=== PATIENT | female | born 1975 | race Caucasian/White ===

== ENCOUNTER 2023-09-21 12:05 | Emergency (ER) | payer MEDICARE, OTHER ==
[~2023-09-21] VITALS: Ht 165.1 cm; Wt 88.5 kg
[2023-09-21 13:32] LABS: BASOPHILS % (AUTO) 0.4 % (0.0-2.0); EOSINOPHILS % (AUTO) 0.2 % (0.0-6.0); HEMATOCRIT 35 % (33-45); HEMOGLOBIN 11.9 g/dL (11.5-14.8); LYMPHOCYTES # (AUTO) 1.2 K/uL (0.8-4.8); LYMPHOCYTES % (AUTO) 17.1 % (20.0-44.0); MEAN CORPUSCULAR HEMOGLOBIN 28 PG (26.0-33.0); MEAN CORPUSCULAR HGB CONC 34 g/dl (31.0-36.0); MEAN CORPUSCULAR VOLUME 82 fL (82-100); MONOCYTES # (AUTO) 0.9 K/uL (0.1-1.30); MONOCYTES % (AUTO) 12.1 % (2.0-12.0); NEUTROPHILS % (AUTO) 70.2 % (43.0-81.0); PLATELET COUNT (AUTO) 166 K/uL (150-450); RED BLOOD CELL COUNT(AUTO) 4.29 MIL/uL (4.0-5.2); RED CELL DISTRIBUTION WIDTH 14.3 % (11.5-15.0); WHITE BLOOD COUNT (AUTO) 7.1 K/uL (4.3-11.0)
[2023-09-21] MEDS ORDERED: ALBUTEROL FS 2.5 MG/0.5 ML VIAL.NEB ONE (13:41)
[2023-09-21 13:48] LABS: CALCIUM, SERUM 8.2 mg/dL (8.5-10.1); POTASSIUM 3.8 mmol/L (3.5-5.1)
[2023-09-21 13:50] VITALS: O2SAT 96
[2023-09-21] MEDS: IV NS 0.9% 1,000 ML BAG IV ONE (13:51)
[2023-09-21] MEDS: ALBUTEROL FS 2.5 MG/0.5 ML VIAL.NEB NEB ONE (13:53)
[2023-09-21 14:08] VITALS: O2SAT 96; O2SAT 99
[2023-09-21 15:29] LABS: APPEARANCE,URINE CLEAR (CLEAR); BILIRUBIN,URINE NEGATIVE (NEGATIVE); BLOOD, URINE 1+ Ery/uL (NEGATIVE); COLOR,URINE YELLOW (YELLOW); KETONES,URINE 1+ mg/dL (NEGATIVE); LEUKOCYTE ESTERASE ,URINE NEGATIVE (NEGATIVE); NITRITE, URINE NEGATIVE (NEGATIVE); PROTEIN,URINE 2+ mg/dl (NEGATIVE); UGLUCOSE 3+ mg/dL (NEGATIVE); UROBILINOGEN,URINE 0.2 EU/dL (0.2)
[2023-09-21] MEDS ORDERED: FLUT9.9S NS (15:33)
[2023-09-21] MEDS ORDERED: FLUT10.62 INH (15:33)
[2023-09-21] MEDS ORDERED: ALBU18HF2 INH (15:33)
[2023-09-21 15:38] LABS: ADD URINE CULTURE NO; BACTERIA,URINE None seen /HPF (None Seen); WBC,URINE 0-2 /HPF (0-3)
[2023-09-21] MEDS ORDERED: GUAI200T5 PO (16:07)
[2023-09-21 16:20] VITALS: BP 119/75; TEMP 98.7; O2SAT 95
== END 2023-09-21 16:21 | disposition home or self-care (01) ==
LOC: ER 12:05
DX: U07.1 COVID-19 (principal); I10 Essential (primary) hypertension; E11.9 Type 2 diabetes mellitus without complications; J45.909 Unspecified asthma, uncomplicated
CPT/HCPCS: 99285; 96360; 87426; 85025; 80048; 81001; 36415; 94640; J7030

== ENCOUNTER 2024-03-06 13:43 | Emergency (ER) | payer MEDICARE, OTHER ==
[~2024-03-06] VITALS: Ht 165.1 cm; Wt 115.7 kg
[~2024-03-06 13:43] MED LIST: ALBU18HF2 INH; FLUT10.62 INH; FLUT9.9S NS; GUAI200T5 PO
[2024-03-06 13:50] VITALS: TEMP 98
[2024-03-06] MEDS ORDERED: FAMOTIDINE (20 MG) 20 MG TABLET ONE (15:00)
[2024-03-06] MEDS ORDERED: LORATADINE 10 MG TABLET ONE (15:00)
[2024-03-06] MEDS ORDERED: ALBUTEROL FS 2.5 MG/0.5 ML VIAL.NEB ONE (15:08)
[2024-03-06 15:10] VITALS: O2SAT 98
[2024-03-06] MEDS: ALBUTEROL FS 2.5 MG/0.5 ML VIAL.NEB NEB ONE (15:10)
[2024-03-06] MEDS: FAMOTIDINE (20 MG) 20 MG TABLET PO ONE (15:13)
[2024-03-06] MEDS: LORATADINE 10 MG TABLET PO SCH (15:13)
[2024-03-06 15:20] VITALS: O2SAT 99
[2024-03-06] MEDS ORDERED: LORA10TA7 PO (16:13)
[2024-03-06] MEDS ORDERED: FAMO20TA8 PO (16:13)
[2024-03-06] MEDS ORDERED: EPIN0.3P3 IM (16:13)
[2024-03-06 16:27] VITALS: BP 120/80; O2SAT 99
== END 2024-03-06 16:28 | disposition home or self-care (01) ==
LOC: ER 13:51
DX: J45.909 Unspecified asthma, uncomplicated (principal); R06.02 Shortness of breath; E11.9 Type 2 diabetes mellitus without complications; Z79.51 Long term (current) use of inhaled steroids; Z79.899 Other long term (current) drug therapy; Z60.2 Problems related to living alone
CPT/HCPCS: 94799-TC

== ENCOUNTER 2024-04-02 18:07 | Emergency (ER) | payer MEDICARE, OTHER ==
[~2024-04-02] VITALS: Ht 172.7 cm; Wt 90.7 kg
[~2024-04-02 18:07] MED LIST changes: +EPIN0.3P3 IM; +FAMO20TA8 PO; +LORA10TA7 PO
[2024-04-02 18:15] VITALS: TEMP 98.1
[2024-04-02 19:05] LABS: BASOPHILS % (AUTO) 0.4 % (0.0-2.0); EOSINOPHILS # (AUTO) 0.1 K/uL (0.0-0.7); EOSINOPHILS % (AUTO) 1.4 % (0.0-6.0); HEMATOCRIT 36 % (33-45); LYMPHOCYTES # (AUTO) 2.4 K/uL (0.8-4.8); LYMPHOCYTES % (AUTO) 35.1 % (20.0-44.0); MEAN CORPUSCULAR HEMOGLOBIN 28 PG (26.0-33.0); MEAN CORPUSCULAR HGB CONC 33 g/dl (31.0-36.0); MEAN CORPUSCULAR VOLUME 84 fL (82-100); MONOCYTES # (AUTO) 0.4 K/uL (0.1-1.30); MONOCYTES % (AUTO) 6.3 % (2.0-12.0); NEUTROPHILS # (AUTO) 3.9 K/uL (1.8-8.9); NEUTROPHILS % (AUTO) 56.8 % (43.0-81.0); PLATELET COUNT (AUTO) 250 K/uL (150-450); RED BLOOD CELL COUNT(AUTO) 4.34 MIL/uL (4.0-5.2); WHITE BLOOD COUNT (AUTO) 6.9 K/uL (4.3-11.0)
[2024-04-02 19:13] LABS: CREATININE 0.6 mg/dL (0.6-1.3); POTASSIUM 4.1 mmol/L (3.5-5.1)
[2024-04-02] MEDS ORDERED: ALBU18HF2 INH (20:08)
[2024-04-02 20:34] VITALS: BP 125/79; O2SAT 98
== END 2024-04-02 20:34 | disposition home or self-care (01) ==
LOC: ER 18:16
DX: R06.02 Shortness of breath (principal); J45.909 Unspecified asthma, uncomplicated; E11.9 Type 2 diabetes mellitus without complications; Z79.52 Long term (current) use of systemic steroids; Z79.899 Other long term (current) drug therapy; Z20.822 Contact with and (suspected) exposure to COVID-19; Z60.2 Problems related to living alone
CPT/HCPCS: 36415; 71045-TC; 80048-TC; 85025-TC

== ENCOUNTER 2024-04-25 15:26 | Emergency (ER) | payer MEDICARE, OTHER ==
[~2024-04-25] VITALS: Ht 165.1 cm; Wt 90.7 kg
[2024-04-25] MEDS ORDERED: predniSONE 20 MG TABLET ONE (15:55)
[2024-04-25] MEDS: predniSONE 20 MG TABLET PO ONE (16:00)
[2024-04-25] MEDS ORDERED: IPRATROPIUM NEB FS 0.5 MG/2.5 ML AMPUL.NEB ONE (16:12)
[2024-04-25] MEDS ORDERED: ALBUTEROL FS 2.5 MG/0.5 ML VIAL.NEB ONE (16:12)
[2024-04-25] MEDS: IPRATROPIUM NEB FS 0.5 MG/2.5 ML AMPUL.NEB NEB ONE (16:22)
[2024-04-25] MEDS: ALBUTEROL FS 2.5 MG/3 ML VIAL.NEB CONTNEB ONE (16:22)
[2024-04-25 16:23] VITALS: O2SAT 98
[2024-04-25 16:42] VITALS: O2SAT 98
[2024-04-25] MEDS ORDERED: PRED50TA PO (17:34)
[2024-04-25 18:00] VITALS: BP 145/82; TEMP 98.5; O2SAT 98
== END 2024-04-25 17:45 | disposition home or self-care (01) ==
LOC: ER 15:32
DX: J45.909 Unspecified asthma, uncomplicated (principal); R05.9 Cough, unspecified; E11.9 Type 2 diabetes mellitus without complications; Z60.2 Problems related to living alone; Z20.822 Contact with and (suspected) exposure to COVID-19
CPT/HCPCS: 99285; 71045; 87426; 87420; 94640; J7512

== ENCOUNTER 2024-06-06 02:00 | Emergency (ER) | payer MEDICARE, OTHER ==
[~2024-06-06] VITALS: Ht 167.6 cm; Wt 74.8 kg
[~2024-06-06 02:00] MED LIST changes: +PRED50TA PO
[2024-06-06 03:55] VITALS: BP 128/79; TEMP 98.5; O2SAT 99
== END 2024-06-06 04:26 | disposition home or self-care (01) ==
LOC: ER 02:03
DX: R06.02 Shortness of breath (principal); E11.9 Type 2 diabetes mellitus without complications; J45.909 Unspecified asthma, uncomplicated; Z79.51 Long term (current) use of inhaled steroids; Z79.52 Long term (current) use of systemic steroids; Z60.2 Problems related to living alone
CPT/HCPCS: 71045-TC; 82962-TC

== ENCOUNTER 2024-09-02 19:16 | Emergency (ER) | payer MEDICARE, OTHER ==
[~2024-09-02] VITALS: Ht 165.1 cm; Wt 90.7 kg
[2024-09-03 08:54] LABS: BASOPHILS % (AUTO) 0.3 % (0.0-2.0); EOSINOPHILS # (AUTO) 0.1 K/uL (0.0-0.7); EOSINOPHILS % (AUTO) 1.6 % (0.0-6.0); HEMATOCRIT 36 % (33-45); HEMOGLOBIN 12.2 g/dL (11.5-14.8); LYMPHOCYTES # (AUTO) 3.2 K/uL (0.8-4.8); LYMPHOCYTES % (AUTO) 44.6 % (20.0-44.0); MEAN CORPUSCULAR HEMOGLOBIN 30 PG (26.0-33.0); MEAN CORPUSCULAR HGB CONC 34 g/dl (31.0-36.0); MEAN CORPUSCULAR VOLUME 87 fL (82-100); MONOCYTES # (AUTO) 0.6 K/uL (0.1-1.30); MONOCYTES % (AUTO) 7.8 % (2.0-12.0); NEUTROPHILS # (AUTO) 3.3 K/uL (1.8-8.9); NEUTROPHILS % (AUTO) 45.7 % (43.0-81.0); PLATELET COUNT (AUTO) 160 K/uL (150-450); RED BLOOD CELL COUNT(AUTO) 4.12 MIL/uL (4.0-5.2); WHITE BLOOD COUNT (AUTO) 7.2 K/uL (4.3-11.0)
[2024-09-03 09:10] LABS: CARBON DIOXIDE 27 mmol/L (21-32); CHLORIDE 105 mmol/L (98-107); CREATININE 0.8 mg/dL (0.6-1.3); GLUCOSE 163 mg/dL (74-106); POTASSIUM 3.8 mmol/L (3.5-5.1); SODIUM SERUM 141 mmol/L (136-145); UREA NITROGEN, BLOOD 10 mg/dL (7-18)
[2024-09-03 09:25] LABS: ALANINE AMINOTRANSFERASE 22 U/L (12-78); ALBUMIN 2.9 g/dL (3.4-5.0); ALKALINE PHOSPHATASE 83 U/L (46-116); ASPARTATE AMINOTRANSFERASE 10 U/L (15-37); BILIRUBIN,DIRECT 0.1 mg/dL (0.0-0.2); BILIRUBIN,TOTAL 0.4 mg/dL (0.2-1.0); TOTAL PROTEIN, SERUM 7.3 g/dL (6.4-8.2)
[2024-09-03 09:26] LABS: ACETAMINOPHEN <10 ug/ml (10-30); SALICYLATE 1.4 mg/dL (2.8-20.0)
[2024-09-03 09:39] LABS: ALCOHOL, BLOOD < 10 mg/dL (0-10)
[2024-09-03 09:55] LABS: APPEARANCE,URINE CLEAR (CLEAR); BILIRUBIN,URINE NEGATIVE (NEGATIVE); BLOOD, URINE 2+ Ery/uL (NEGATIVE); COLOR,URINE YELLOW (YELLOW); KETONES,URINE NEGATIVE (NEGATIVE); LEUKOCYTE ESTERASE ,URINE NEGATIVE (NEGATIVE); NITRITE, URINE NEGATIVE (NEGATIVE); PROTEIN,URINE NEGATIVE (NEGATIVE); UGLUCOSE 1+ mg/dL (NEGATIVE); UROBILINOGEN,URINE 0.2 EU/dL (0.2)
[2024-09-03 10:07] LABS: ADD URINE CULTURE YES; BACTERIA,URINE Many /HPF (None Seen); RBC,URINE 0-2 /HPF (0-2); SQUAMOUS EPITHELIAL CELL,UR Many /HPF (None Seen)
[2024-09-03 10:22] LABS: AMPHETAMINE, URINE NEGATIVE (NEGATIVE); BARBITURATE, URINE NEGATIVE (NEGATIVE); BENZODIAZEPINE, URINE NEGATIVE (NEGATIVE); CANNABINOID, URINE NEGATIVE (NEGATIVE); COCCAINE, URINE NEGATIVE (NEGATIVE); OPIATE, URINE NEGATIVE (NEGATIVE); PHENCYCLIDINE SCREEN,URINE NEGATIVE (NEGATIVE)
[2024-09-03 10:59] LABS: PREGNANCY TEST URINE QUAL NEGATIVE (NEGATIVE)
[2024-09-03 12:00] VITALS: BP 138/94; TEMP 98.1; O2SAT 98
== END 2024-09-03 12:54 ==
LOC: ER 19:18
DX: R00.2 Palpitations (principal); R00.0 Tachycardia, unspecified; E11.9 Type 2 diabetes mellitus without complications; J45.909 Unspecified asthma, uncomplicated; F41.9 Anxiety disorder, unspecified; Z79.51 Long term (current) use of inhaled steroids; Z79.52 Long term (current) use of systemic steroids; Z60.2 Problems related to living alone; Z20.822 Contact with and (suspected) exposure to COVID-19
CPT/HCPCS: 36415; 80048-TC; 80076-TC; 81001; 84703-TC; 85025-TC; 87086-TC; G0480

== ENCOUNTER 2024-09-16 20:21 | Emergency (ER) | payer MEDICARE, OTHER ==
[~2024-09-16] VITALS: Ht 165.1 cm; Wt 90.7 kg
[2024-09-16 21:25] VITALS: BP 148/82; TEMP 98.1; O2SAT 98
[2024-09-16 21:55] LABS: BASOPHILS % (AUTO) 0.2 % (0.0-2.0); EOSINOPHILS % (AUTO) 0.1 % (0.0-6.0); HEMATOCRIT 38 % (33-45); HEMOGLOBIN 13.2 g/dL (11.5-14.8); LYMPHOCYTES # (AUTO) 1.9 K/uL (0.8-4.8); LYMPHOCYTES % (AUTO) 24.6 % (20.0-44.0); MEAN CORPUSCULAR HEMOGLOBIN 30 PG (26.0-33.0); MEAN CORPUSCULAR HGB CONC 35 g/dl (31.0-36.0); MEAN CORPUSCULAR VOLUME 86 fL (82-100); MONOCYTES # (AUTO) 0.9 K/uL (0.1-1.30); NEUTROPHILS # (AUTO) 4.8 K/uL (1.8-8.9); NEUTROPHILS % (AUTO) 63.1 % (43.0-81.0); PLATELET COUNT (AUTO) 179 K/uL (150-450); RED BLOOD CELL COUNT(AUTO) 4.41 MIL/uL (4.0-5.2); RED CELL DISTRIBUTION WIDTH 13.7 % (11.5-15.0); WHITE BLOOD COUNT (AUTO) 7.6 K/uL (4.3-11.0)
[2024-09-16 22:04] LABS: CALCIUM, SERUM 8.6 mg/dL (8.5-10.1); CREATININE 1.1 mg/dL (0.6-1.3); POTASSIUM 4.1 mmol/L (3.5-5.1)
[2024-09-16] MEDS: IV NS 0.9% 1,000 ML BAG IV ONE (22:11)
[2024-09-16] MEDS ORDERED: PSEU120T99 PO (22:42)
== END 2024-09-17 00:12 | disposition home or self-care (01) ==
LOC: ER 20:24
DX: J10.1 Influenza due to other identified influenza virus with other respiratory manifestations (principal); J45.909 Unspecified asthma, uncomplicated; E11.65 Type 2 diabetes mellitus with hyperglycemia; Z79.51 Long term (current) use of inhaled steroids; Z79.52 Long term (current) use of systemic steroids; Z60.2 Problems related to living alone
CPT/HCPCS: 99283; 96360; 85025; 80048; 36415; J7030

== ENCOUNTER 2025-03-11 19:35 | Emergency (ER) | payer MEDICARE, OTHER ==
[~2025-03-11] VITALS: Ht 165.1 cm; Wt 99.8 kg
[~2025-03-11 19:35] MED LIST changes: +PSEU120T99 PO
[2025-03-11] MEDS: IV NS 0.9% 500 ML BAG IV ONE (20:36)
[2025-03-11 20:45] LABS: PLATELET COUNT (AUTO) 167 K/uL (150-450); RED BLOOD CELL COUNT(AUTO) 4.29 MIL/uL (4.0-5.2); RED CELL DISTRIBUTION WIDTH 13.4 % (11.5-15.0); WHITE BLOOD COUNT (AUTO) 7.5 K/uL (4.3-11.0)
[2025-03-11 21:49] LABS: CALCIUM, SERUM 9.1 mg/dL (8.5-10.1); CREATININE 0.7 mg/dL (0.6-1.3); SODIUM SERUM 139 mmol/L (136-145); UREA NITROGEN, BLOOD 11 mg/dL (7-18)
[2025-03-11] MEDS ORDERED: IOHEXOL-350 100 ML VIAL IV ONE (21:57)
[2025-03-11 22:51] VITALS: BP 136/80; TEMP 98; O2SAT 97
== END 2025-03-11 23:04 | disposition home or self-care (01) ==
LOC: ER 19:38
DX: R00.2 Palpitations (principal); R06.02 Shortness of breath; I10 Essential (primary) hypertension; E11.9 Type 2 diabetes mellitus without complications; Z79.51 Long term (current) use of inhaled steroids; Z79.52 Long term (current) use of systemic steroids; Z60.2 Problems related to living alone
CPT/HCPCS: 99285; 71275; 71045; 93005 ×2; 85025; 80048; 85378; 36415; 84484 ×2; J7030; Q9967